=== PATIENT | male | born 1980 | race Caucasian/White ===

== ENCOUNTER 2016-10-15 14:08 | Emergency (ER) ==
[2016-10-15 14:08] VITALS: BMI 36.5
[2016-10-15 14:13] VITALS: BP 166/80; TEMP 96.2
[2016-10-15] MEDS ORDERED: MORPHINE 4 MG/ML SYRINGE IVP STA ×2 (14:24→15:10)
[2016-10-15] MEDS ORDERED: ZOFRAN 4 MG/2 ML IVP STA (14:24)
[2016-10-15] MEDS ORDERED: SODIUM CHLORIDE 1,000 ML IV STA (14:25)
--- NOTE | 2016-10-15 14:28 | ED.PDOC ---
General ED Provider: Dr. RAVEN MENDOZA Chief Complaint: Kidney Stone Stated Complaint: pt had to get off towboat to be seen. started having left flank/abd pain this am, states he thinks he has a kidney stone. He states that he has had 4-5 before and stents in both kidneys. Time Seen by Physician: 14:26 Mode of Arrival: Walk-In Information Source: Patient Nursing and Triage Documentation Reviewed and Agree: Yes GI Complaint Exam - Abdominal Pain Complaint/Exam Onset: Sudden Duration: 1 day Symptoms Are: Still present Timing: Constant Initial Severity: Severe Current Severity: Severe Location of Pain: Discrete Radiates To: Reports: Back, Flank Character: Reports: Sharp, Aching Aggravating: Reports: None Alleviating: Reports: Vomiting Associated Signs and Symptoms: Reports: Back pain, Nausea, Vomiting AAA Risk Factors: Reports: None Cardiac Risk Factors: Reports: None Testicular Torsion Risk Factors: Reports: None Surgical Obstruction Risk Factors: Reports: None Related Surgical History: Reports: Kidney Stones Abdominal Findings: Present: None Male Body Picture: 1 - area of pain minimal tendeness Review of Systems - Review Of Systems Constitutional: Reports: Loss of appetite Eyes: Reports: No symptoms Ears, Nose, Mouth, Throat: Reports: No symptoms Respiratory: Reports: No symptoms Cardiac: Reports: No symptoms GI: Reports: Abdominal pain : Reports: No symptoms Skin: Reports: No symptoms Neurological: Reports: Anxiety Endocrine: Reports: No symptoms Hematologic/Lymphatic: Reports: No symptoms All Other Systems: Reviewed and Negative Past Medical History - Past Medical History Endocrine: Reports: None Cardiovascular: Reports: None Respiratory: Reports: None Hematological: Reports: None Gastrointestinal: Reports: None Genitourinary: Reports: Kidney stones Neuro/Psych: Reports: None Musculoskeletal: Reports: None Cancer: Reports: None - Surgical History General Surgical History: Reports: Orthopedic (steel plate to right ankle.), Other (Renal stents ) - Family History Family History: Reports: None - Social History Smoking Status: Current every day smoker, Heavy tobacco smoker Hx Substance Use: No Alcohol Screening: None Physical Exam - Physical Exam Appearance: Ill-appearing Ill-appearing: Moderate Pain Distress: Severe Neck: Supple Respiratory: Airway patent, Breath sounds clear, Breath sounds equal, Respirations nonlabored Cardiovascular: RRR, Pulses normal, No rub, No murmur GI/: Soft, Tender (mild on the left lower quadrant ) Musculoskeletal: Normal strength, ROM intact, No edema, No calf tenderness Skin: Warm, Dry, Normal color Neurological: Sensation intact Psychiatric: Anxious Interpretation - Radiology Interpretation Radiology Interpretation By: Radiologist Radiology Results: No acute changes (possibly pasee) Exam Interpreted: CT Scan (abdomen and pelvis ) Critical Care Note - Critical Care Note Total Time (mins): 0 Course - Course Hematology/Chemistry: 10/15/16 14:20 10/15/16 14:20 Orders, Labs, Meds: Lab Review 10/15/16 10/15/16 14:20 14:26 WBC 7.12 RBC 5.20 Hgb 15.4 Hct 47.3 MCV 91.0 MCH 29.6 MCHC 32.6 RDW Coeff of Amarilis 13.9 Plt Count 329 Immature Gran % (Auto) 0.3 Neut % (Auto) 42.3 Lymph % (Auto) 46.1 [place] % (Auto) 9.7 Eos % (Auto) 1.3 Baso % (Auto) 0.3 Immature Gran # (Auto) 0.0 Neut # 3.0 Lymph # 3.3 [place] # 0.7 Eos # 0.1 Baso # 0.0 Sodium 142 Potassium 3.8 Chloride 102 Carbon Dioxide 29 Anion Gap 14.8 BUN 12 Creatinine 1.01 Estimated GFR (MDRD) 83.00 BUN/Creatinine Ratio 11.88 Glucose 89 Calcium 9.7 Total Bilirubin 0.26 AST 28 ALT 51 Alkaline Phosphatase 105 Total Protein 8.4 H Albumin 4.1 Globulin 4.3 Albumin/Globulin Ratio 0.95 Amylase 66 Lipase 21 Urine Color Yellow Urine Clarity Clear Urine pH 7.0 Ur Specific [place] 1.015 Urine Protein Negative Urine Glucose (UA) Negative Urine Ketones Negative Urine Blood 1+ Urine Nitrite Negative Urine Bilirubin Negative Urine Urobilinogen 0.2 Ur Leukocyte Esterase Trace Urine Microscopic RBC 10-20 Urine Microscopic WBC 2-5 Ur Squamous Epith Cells 2-5 Orders Category Date Time Status ED IV/MEDIPORT/POWERPORT .ONCE EMERGENCY 10/15/16 14:25 Active AMYLASE Stat LAB 10/15/16 14:20 Completed CBC W/ AUTO DIFF Stat LAB 10/15/16 14:20 Completed COMPREHENSIVE METABOLIC PANEL Stat LAB 10/15/16 14:20 Completed LIPASE Stat LAB 10/15/16 14:20 Completed URINALYSIS C & S IF INDICATED Stat LAB 10/15/16 14:26 Completed 0.9 % Sodium Chloride [Saline Flush] MEDS 10/15/16 14:25 Discontinued 1 syr IVF PRN PRN Morphine Sulfate [Morphine 4 mg/ml Syringe] MEDS 10/15/16 14:24 Discontinued 4 mg IVP ONCE STA Morphine Sulfate [Morphine 4 mg/ml Syringe] MEDS 10/15/16 15:10 Discontinued 4 mg IVP ONCE STA Ondansetron HCl/Pf [Zofran 4 mg/2 ml] MEDS 10/15/16 14:24 Discontinued 4 mg IVP ONCE STA Sodium Chloride 0.9% [Sodium Chloride] 1,000 ml MEDS 10/15/16 14:[address] ABD/PEL WO RENAL STONE PROT Stat RADS 10/15/16 14:27 Completed Medications Discontinued Medications Generic Name Dose Route Start Last Admin Trade Name Freq PRN Reason Stop Dose Admin Sodium Chloride 1,000 mls @ 1,000 mls/hr 10/15/16 14:25 10/15/16 14:32 Sodium Chloride IV 10/15/16 15:24 1,000 mls/hr BOLUS STA Administration Morphine Sulfate 4 mg 10/15/16 14:24 10/15/16 14:32 Morphine 4 Mg/Ml Syringe IVP 10/15/16 14:25 4 mg ONCE STA Administration Morphine Sulfate 4 mg 10/15/16 15:10 10/15/16 15:30 Morphine 4 Mg/Ml Syringe IVP 10/15/16 15:11 4 mg ONCE STA Administration Ondansetron HCl 4 mg 10/15/16 14:24 10/15/16 14:30 Zofran 4 Mg/2 Ml IVP 10/15/16 14:25 4 mg ONCE STA Administration Sodium Chloride 1 syr 10/15/16 14:25 10/15/16 14:32 Saline Flush IVF 1 syr PRN PRN Administration To flush IV Vital Signs: Temp Pulse Resp BP Pulse Ox 10/15/16 14:08 96.2 F L 96 H 22 166/80 H 99 Departure - Departure Time of Disposition: 16:17 Disposition: HOME SELF-CARE Discharge Problem: Kidney stone, Acute flank pain Instructions: Kidney Stones (ED) Condition: Good Pt referred to PMD for follow-up: Yes Additional Instructions: Take pain medications as prescribed Follow up with PCP in 3 days. Prescriptions: Hydrocodone/Acetaminophen [[place] 5-325 Tablet] 1 tab PO Q6HR PRN #12 tablet PRN Reason: PAIN Allergies/Adverse Reactions: Allergies ketorolac [From Toradol] Adverse Reaction (Verified 10/15/16 16:29) Penicillins Adverse Reaction (Verified 10/15/16 16:29) Home Medications: Ambulatory Orders 1 [No Reported Medications] 0 mg PO DAILY 05/04/13 Hydrocodone/Acetaminophen [[place] 5-325 Tablet] 1 tab PO Q6HR PRN #12 tablet 04/24 Disposition Discussed With: Patient, Family
[2016-10-15 14:30] LABS: BILIRUBIN,URINE Negative (NEGATIVE); KETONES,URINE Negative (NEGATIVE); LEUKOCYTE ESTERASE ,URINE Trace (NEGATIVE); NITRITE,URINE Negative (NEGATIVE); PROTEIN,URINE Negative (NEGATIVE); URINE, BLOOD 1+ (NEGATIVE)
[2016-10-15 14:34] LABS: ADD URINE MICROSCOPIC YES
--- NOTE | 2016-10-15 15:13 | CT ---
EXAM: CT of the abdomen and pelvis without contrast. HISTORY: Abdominal pain. History of kidney stones COMPARISON: CT abdomen pelvis from 07/17/2012 TECHNIQUE: Contiguous axial images at 3 mm intervals were obtained from lung bases through the pelv is without contrast. Coronal and sagittal reformats were performed. FINDINGS: CHEST: The lung bases show no lobar consolidation or effusion. The heart size is within normal li mits.There is no hiatal hernia. ABDOMEN: No acute abnormality. LIVER: There is no solid mass lesion or intrahepatic ductal dilatation. BILIARY: The gallbladder is normally distended. No gallstones are noted. No pericholecystic fluid or inflammation. The common bile duct is normal. SPLEEN: The spleen is unremarkable. PANCREAS: The pancreas shows no mass lesion or peripancreatic inflammation. ADRENAL GLANDS: The adrenal glands are normal. RENAL: The kidneys show no hydronephrosis. There are three punctate nonobstructive calyceal stone seen in the interpolar region of the left kidney. There are no obstructing ureteral stones. Both ur eters demonstrate normal course and caliber. No solid mass lesions are identified. There are no larg e cysts. RETROPERITONEUM: No aortic aneurysm is identified. No calcifications are seen. There is no pathol ogic retroperitoneal or mesenteric adenopathy. There are a few scattered nonpathologic mesenteric no angel identified. BOWEL: There is no obstruction or ileus. There is no bowel wall thickening, edema or mesenteric fat stranding. There is no free fluid or free air. The appendix is identified and is normal. PELVIS: No acute abnormality. BLADDER: There are no filling defects, no blood clots or stones. Urinary bladder is somewhat decomp ressed. GENITOURINARY STRUCTURES: Unremarkable. OSSEOUS STRUCTURES: No acute osseous abnormalities. IMPRESSION: 1. No evidence for obstructing ureteral stone. 2. Three punctate calyceal stones on the left otherwise. Report called to Dr. Sanders
[2016-10-15 15:55] LABS: BASOPHILS % (AUTO) 0.3 % (0.0-3.0); EOSINOPHILS # (AUTO) 0.1 K/ul (0.0-0.7); EOSINOPHILS % (AUTO) 1.3 % (0.0-7.0); HEMATOCRIT 47.3 % (42.0-52.0); HEMOGLOBIN 15.4 g/dl (14.0-18.0); IMMATURE GRANULOCYTE % (AUTO) 0.3 % (0.0-5.0); LYMPHOCYTES # (AUTO) 3.3 K/uL (0.60-3.4); LYMPHOCYTES % (AUTO) 46.1 (10.0-50.0); MEAN CORPUSCULAR HEMOGLOBIN 29.6 pg (27.0-31.0); MEAN CORPUSCULAR HGB CONC 32.6 (31.8-35.4); MONOCYTES # (AUTO) 0.7 K/uL (0.4-2.0); MONOCYTES % (AUTO) 9.7 (0-10); NEUTROPHILS % (AUTO) 42.3; PLATELET COUNT 329 10^3/uL (140-440); WHITE BLOOD COUNT 7.12 K/ul (4.2-10.2)
[2016-10-15 16:10] LABS: ALBUMIN 4.1 g/dL (3.4-5.0); ALBUMIN/GLOBULIN RATIO 0.95; ANION GAP 14.8; BILIRUBIN,TOTAL 0.26 mg/dL (0.00-1.20); BUN/CREATININE RATIO 11.88; CALCIUM 9.7 mg/dL (8.2-10.2); CREATININE 1.01 mg/dL (0.60-1.10); POTASSIUM 3.8 mmol/L (3.5-5.1); TOTAL PROTEIN 8.4 g/dL (6.4-8.2)
== END 2016-10-15 16:29 | disposition home or self-care (01) ==
LOC: ED 14:08
DX: N20.0 Calculus of kidney (principal); R10.10 Upper abdominal pain, unspecified; Z87.442 Personal history of urinary calculi; F17.210 Nicotine dependence, cigarettes, uncomplicated
CPT/HCPCS: 36415; 74176; 80053; 81001; 82150; 83690; 85025; 96361; 96374; 96375; 96376; 99283